=== PATIENT | male | born 1950 | race African-American/Black ===

== ENCOUNTER 2021-03-05 09:37 | Emergency (ER) | payer OTHER ==
[~2021-03-05] VITALS: Ht 175.3 cm; Wt 81.6 kg
[2021-03-05] MEDS ORDERED: NAPROXEN500 MG (10:03)
[2021-03-05] MEDS ORDERED: DICLOFENAC POTA50 MG PO (16:26)
== END 2021-03-05 16:36 ==
LOC: ER 09:37
DX: S20.211A Contusion of right front wall of thorax, initial encounter (principal); S30.1XXA Contusion of abdominal wall, initial encounter; W18.09XA Striking against other object with subsequent fall, initial encounter; Y93.89 Activity, other specified; Y92.89 Other specified places as the place of occurrence of the external cause; Y99.8 Other external cause status

== ENCOUNTER 2021-12-13 09:34 | Outpatient (CLI) | payer OTHER ==
[~2021-12-13 09:34] MED LIST: DICLOFENAC POTA50 MG PO; NAPROXEN500 MG
== END 2021-12-13 15:05 | disposition home or self-care (01) ==
LOC: LAB 09:34
PROVIDERS: ATTEND Orthopaedic Surgery
DX: D64.9 Anemia, unspecified (principal); E88.9 Metabolic disorder, unspecified; D68.8 Other specified coagulation defects; N39.0 Urinary tract infection, site not specified; A49.02 Methicillin resistant Staphylococcus aureus infection, unspecified site; Z76.89 Persons encountering health services in other specified circumstances; I10 Essential (primary) hypertension; I49.9 Cardiac arrhythmia, unspecified

== ENCOUNTER 2022-11-08 15:56 | Emergency (ER) | payer OTHER ==
[~2022-11-08] VITALS: Ht 172.7 cm; Wt 83.9 kg
[2022-11-08] MEDS ORDERED: DONEPEZIL HCL O10 MG PO (17:10)
[2022-11-08] MEDS ORDERED: ZESTRIL5 MG PO (17:11)
[2022-11-08] MEDS ORDERED: CIPROFLOXACIN500 MG PO (22:03)
[2022-11-08] MEDS ORDERED: METRONIDAZOLE500 MG PO (22:03)
[2022-11-08] MEDS ORDERED: PEPCID AC20 MG PO (22:03)
[2022-11-08] MEDS ORDERED: IBU800 MG PO (22:04)
== END 2022-11-08 22:08 | disposition home or self-care (01) ==
LOC: ER 15:56
DX: K52.9 Noninfective gastroenteritis and colitis, unspecified (principal); I10 Essential (primary) hypertension; G30.9 Alzheimer's disease, unspecified; F02.80 Dementia in other diseases classified elsewhere, unspecified severity, without behavioral disturbance, psychotic disturbance, mood disturbance, and anxiety